=== PATIENT | male | born 1955 | race Caucasian/White ===

== ENCOUNTER → 2018-07-28 | Outpatient (CLI) | payer BC ==
--- NOTE | 2018-07-28 13:27 | Diagnostic Imaging Report ---
EXAM: Renal Ultrasound INDICATION: Flank pain. COMPARISON: None TECHNIQUE: Transverse and longitudinal images of the kidneys and bladder were obtained. FINDINGS: Right Kidney: Length: 12.0 x 6.3 x 5.2 cm, the renal cortex measures 2.1 cm Appearance: Normal echogenicity. Collecting system: No hydronephrosis Stones: None Cyst/Mass: No evidence of solid mass. There is a 1.9 x 1.5 x 1.8 cm anechoic appearing simple cyst in the midpole. Left Kidney: Length: 11.4 x 5.4 x 4.3 cm, the renal cortex measures 1.6 cm Appearance: Normal echogenicity. Collecting system: No hydronephrosis Stones: None Cyst/Mass: No evidence of solid mass. There is a 1.4 x 2.2 x 1.0 cm simple appearing peripelvic cyst in the midpole. Bladder: Unremarkable in appearance. Bilateral ureteral jets are present. Prostate: Measures 4.0 x 2.6 x 3.5 cm. The estimated prostate volume is 19 cc. IMPRESSION: No sonographic evidence of renal stone or hydronephrosis. Bilateral simple appearing renal cysts as above. Signed by: Dr. Brad Santiago MD on 07/28/2018 1:23 PM
== END ==
LOC: US 11:58
PROVIDERS: ATTEND Internal Medicine
DX: R10.9 Unspecified abdominal pain (principal); N28.1 Cyst of kidney, acquired
CPT/HCPCS: 76770